=== PATIENT | female | born 1980 | race Caucasian/White ===

== ENCOUNTER → 2019-03-08 | Outpatient (CLI) | payer OTHER ==
--- NOTE | 2019-03-08 17:43 | WOMENS IMAGING REPORT ---
EXAM DESCRIPTION: 3D DX MAMMO BILAT; U/S BREAST UNILAT LIMITED COMPLETED DATE/TIME: 03/08/2019 8:38 am; 03/08/2019 10:03 am REASON FOR STUDY: N63.20 UNSPECIFIED LUMP IN THE LEFT BREAST, UNSPECIFIED QUADRANT; LEFT BREAST LUMP N63.20 UNSPECIFIED LUMP IN THE LEFT BREAST, UNSPECIFIED QUAD COMPARISON: No previous EXAM PARAMETERS: Standard craniocaudal and mediolateral oblique views of each breast recorded using digital acquisition and breast tomosynthesis. Additional left breast 90 mediolateral view, left breast cone compression in the CC and MLO orientat ions. Left breast and axilla ultrasound was also performed. Read with the assistance of CAD: .[employer] Rough Grade Version 9.2 LIMITATIONS: None. FINDINGS: RIGHT BREAST MASSES: No suspicious masses. CALCIFICATIONS: No new or suspicious calcifications. ARCHITECTURAL DISTORTION: None. ASYMMETRY: None noted. OTHER: No other significant findings. LEFT BREAST MASSES: In the medial left breast, 12 cm from the nipple at about the 8 to 9 o'clock position, a 1.5 cm spiculated mass is present with architectural distortion highly suspicious for malignancy. CALCIFICATIONS: No new or suspicious calcifications. ARCHITECTURAL DISTORTION: None. ASYMMETRY: None noted. OTHER: No other significant finding. Left breast and axilla ultrasound: Performed by both myself as well as the technologist. Patient presents with a palpable nodule left breast 9 o'clock position. Spiculated mass in this area at mammography/ tomosynthesis. Ultrasound of the medial left breast 8 to 9 o'clock position 12 cm f rom the nipple demonstrates an irregular hypoechoic mass with internal color flow and acoustic absorp tion, taller than wide, measuring 16 x 10 x 11 mm in size. This is highly suspicious for malignancy. Ultrasound-guided core biopsy, post biopsy clip placement and immediate follow-up two-view mammogra m recommended. Incidental finding of a 7 mm cyst in the left breast 3 o'clock position. Left axilla was scanned by myself at the time of encounter, no enlarged axillary lymph nodes were identified IMPRESSION: No mammographic/ tomosynthesis evidence for malignancy right breast 1.5 cm mass in the medial left breast correlates with palpable abnormality indicated by the patient. Imaging demonstrates a mass highly suspicious for malignancy. Ultrasound-guided core biopsy, post b iopsy clip placement with follow-up two-view mammogram recommended. BREAST DENSITY: c. The breasts are heterogeneously dense, which may obscure small masses. BIRAD: ASSESSMENT: 5 Highly suggestive of malignancy. Biopsy should be performed in the absence of clinical contra-indication. RECOMMENDATION: RECOMMENDED FOLLOW UP: Ultrasound-guided left breast biopsy of the mass at the 8 to 9 o'clock position. SPECIFIC INTERVENTION/IMAGING/CONSULTATION RECOMMENDED:As above COMMUNICATION:Findings were discussed with the patient at the time of encounter. Hailey LYNP was also notified 0900 hours 03/08/2019. COMMENT: The patient has been notified of the results by letter per SA requirements. Additional no tification policies are in place for contacting patient with suspicious or incomplete findings. Quality ID #225: The [employer] recommends an annual screening mammogram for women aged 40 years or over. This facility utilizes a reminder system to ensure that all patients receive reminder letters, and/or direct phone calls for appointments. This includes reminders for routine scr eening mammograms, diagnostic mammograms, or other Breast Imaging Interventions when appropriate. Th is patient will be placed in the appropriate reminder system. TECHNICAL DOCUMENTATION: FINDING NUMBER: (1) ASSESSMENT: (1) JOB ID: [id number] [email or web address]- All Rights Reserved Reading location - IP/workstation name: [email or web address]
== END ==
LOC: WI 10:53
PROVIDERS: ATTEND Nurse Practitioner Primary Care
DX: N63.20 Unspecified lump in the left breast, unspecified quadrant (principal)
CPT/HCPCS: 76642; 77066; G0279; 77062

== ENCOUNTER 2019-06-06 08:01 | Day surgery (SDC) | payer OTHER ==
[~2019-06-06 08:01] MED LIST: LIDOCAINE 1%/EPINEPHRINE INJ 20 ML VIAL ONE
[2019-06-06] MEDS ORDERED: MIDAZOLAM 2 MG/2 ML INJ ONE (08:30)
[2019-06-06] MEDS ORDERED: PROPOFOL INJ 200 MG/20 ML VIAL IV ONE (08:30)
[2019-06-06] MEDS ORDERED: FENTANYL CITRATE INJ/PF 100 MCG/2 ML AMPUL ONE (08:30)
[2019-06-06] MEDS ORDERED: KETAMINE HCL INJ 500 MG/10 ML VIAL ONE (08:49)
[2019-06-06] MEDS ORDERED: CEFAZOLIN 1 GM/D5W RTU 1 GM/50 ML RTUPB IV PRN (09:05)
[2019-06-06] MEDS ORDERED: ACETAMINOPHEN 325 MG TABLET PO PRN (09:06)
[2019-06-06] MEDS ORDERED: FENTANYL CITRATE INJ/PF 100 MCG/2 ML AMPUL IV PRN ×6 (09:42→12:45)
[2019-06-06] MEDS ORDERED: MEPERIDINE HCL/PF INJ 25 MG/1 ML DISP.SYRIN IV PRN ×2 (09:42→12:45)
[2019-06-06] MEDS ORDERED: MORPHINE SULFATE 10 MG/ML INJ IV PRN ×2 (09:42→12:45)
[2019-06-06] MEDS ORDERED: ONDANSETRON HCL INJ/PF 4 MG/2 ML SDV IV PRN ×2 (09:42→12:45)
[2019-06-06] MEDS ORDERED: DIPHENHYDRAMINE HCL 50 MG/ML VIAL IV PRN ×2 (09:42→12:45)
[2019-06-06] MEDS ORDERED: OXYCODONE-ACETAMINOPHEN 5-325 MG TABLET PO PRN ×2 (09:42)
[2019-06-06 09:44] LABS: ABSOLUTE EOSINOPHILS # (AUTO) 0.5 10^3/uL (0.0-0.6); ABSOLUTE LYMPHOCYTES (AUTO) 2.3 10^3/uL (0.5-4.7); ABSOLUTE MONOCYTES (AUTO) 0.5 10^3/uL (0.1-1.4); ABSOLUTE NEUT (AUTO) 2.6 10^3/uL (1.7-8.2); BASOPHILS % (AUTO) 0.8 % (0-2); EOSINOPHILS % (AUTO) 8.8 % (0-6); HEMATOCRIT 35.5 % (36.0-47.0); HEMOGLOBIN 12.1 g/dL (12.0-15.5); MEAN CORPUSCULAR HEMOGLOBIN 29.1 pg (27.0-33.4); MEAN CORPUSCULAR HGB CONC 34.2 g/dL (32.0-36.0); MEAN CORPUSCULAR VOLUME 85 fl (80-97); MONOCYTES % (AUTO) 7.8 % (3-13); PLATELET COUNT 244 10^3/uL (150-450); RED BLOOD COUNT 4.17 10^6/uL (3.72-5.28); RED CELL DISTRIBUTION WIDTH 14.1 % (11.5-14.0); SEGMENTED NEUTROPHILS % (AUTO) 44.6 % (42-78); TOTAL CELLS COUNTED % (AUTO) 100 %; WHITE BLOOD COUNT 5.9 10^3/uL (4.0-10.5)
[2019-06-06] MEDS ORDERED: CEFAZOLIN INJ 1 GM VIAL ONE (10:21)
[2019-06-06] MEDS ORDERED: LIDOCAINE 1%/EPINEPHRINE INJ 20 ML VIAL ONE (10:38)
--- NOTE | 2019-06-06 11:05 | Discharge Summary ---
Discharge Summary (SDC) - Discharge Final Diagnosis: Invasive left breast carcinoma status post bilateral mastectomies with reconstruction Date of Surgery: 06/06/19 Discharge Date: 06/06/19 Condition: Good Treatment or Instructions: May use port; allow Steri-Strips to fall off; may shower in 48 hours; may take Tylenol, Motrin, or previously prescribed narcotic. Follow-up with Dr. Joshi at [facility] in 2 weeks Referrals: PATRICIA JOSE, PHOTOENGRAVING FINISHER [Primary Care Provider] - Discharge Diet: As Tolerated Discharge Activity: Activity As Tolerated Home Care Assistance: None Needed Report the Following to Your Physician Immediately: Shortness of Breath, Increase in Pain, Fever over 101 Degrees
--- NOTE | 2019-06-06 11:12 | Operative Report ---
Operative Report DATE OF SURGERY: 06/06/19 PREOPERATIVE DIAGNOSIS: Invasive left breast carcinoma status post bilateral ma stectomy and reconstruction POSTOPERATIVE DIAGNOSIS: Same OPERATION: 1. Focused ultrasound of the right neck, and right chest wall. 2. Insertion of right internal jugular vein single-lumen catheter with placement of port in right subclavian position. 3. Interpretation of intraoperative fluoroscopy SURGEON: ARTEM ARCOS ANESTHESIA: LMAC TISSUE REMOVED OR ALTERED: None COMPLICATIONS: None ESTIMATED BLOOD LOSS: Scant INTRAOPERATIVE FINDINGS: See below PROCEDURE: Patient was seen in the preop holding area where the right chest was marked. She was then taken to the main operating room where LMAC anesthesia was induced. The arms were tucked, and then the neck both sides and chest wall both sides prepped and draped in sterile fashion with Betadine. Surgical plan surgical timeout were conducted. The findings were significant for oral chest wall implants. I scanned the chest with the variable frequency linear transducer being out the superior most aspect of the right implant which appeared to be above the pectoralis muscle. Markings were made on the skin. The right neck was scanned with the variable frequency transducer in the neck marked. It was then anesthetized with 1% plain lidocaine. A deepthi was made the skin with 11 blade, with a micro needle and wire threaded into the right internal jugular vein. A suitable location for the port was chosen in the right subclavian position. Again this was 2 cm below the clavicle, and approximately 2 cm above the termination of the right implant the skin was anesthetized 1% plain lidocaine. A 3 cm incision was made with a #15 blade, and a port pocket developed with electrocautery, and blunt dissection. The single-lumen 8 Yi catheter was then trimmed to the appropriate length, and tunneled between the 2 incisions with the malleable trocar. 1 end of the catheter was attached to the port and secured with the plastic ring. The port was tucked into the right subclavian pocket. Of note there was no communication between the subclavian port pocket, and the right chest wall implant. We now switched to the micro wire over to the conventional 0.030 guidewire all under fluoroscopic guidance using the micro introducer sheath. We now threaded over the tensional guidewire 8.5 Yi dilator introducer. The dilator and wire were removed, the free end of the catheter was threaded into the introducer sheath and the sheath stripped away. We checked the positioning of the cath with fluoroscopy and the tip was in the superior vena cava, right atrial region. There was no evidence of ectopy. Hemostat was used to open up the official fascia of the neck to allow the catheter to have a smooth sweep. We aspirated the port chamber and flushed that satisfactorily. We felt the port and catheter were in good position. All wounds closed with 3-0 Vicryl benzoin and Steri- Strips. Patient tolerated the procedure well, taken to recovery in stable condition.
[2019-06-06] MEDS ORDERED: KETOROLAC TROMETHAMINE 60 MG/2 ML SDV ONE (13:50)
[2019-06-06] MEDS ORDERED: ONDANSETRON HCL INJ/PF 4 MG/2 ML SDV ONE (13:50)
[2019-06-06] MEDS ORDERED: DEXAMETHASONE SOD PHOSPHATE INJ 4 MG/1 ML VIAL ONE (13:50)
[2019-06-06 14:03] VITALS: BP 114/65
--- NOTE | 2019-06-06 18:09 | RADIOLOGY REPORT (SQ) ---
EXAM DESCRIPTION: FLUORO/CV PLACEMENT COMPLETED DATE/TIME: 06/06/2019 12:31 pm REASON FOR STUDY: RIGHT PORT-A-CATH C50.212 MALIG NEOPLASM OF UPPER-INNER QUADRANT OF LEFT FEMAL COMPARISON: None. FLUOROSCOPY TIME: 0.1 minutes 4 images saved to PACS. TECHNIQUE: Intra-operative images acquired during surgical procedure to evaluate progress. NUMBER OF IMAGES: 4 LIMITATIONS: None. FINDINGS: Limited field of view imaging shows placement of a Port-A-Cath. Please correlate with ope rative note. IMPRESSION: IMAGE(S) OBTAINED DURING PROCEDURE. COMMENT: Quality ID [id number]: Final reports for procedures using fluoroscopy that document radiation exp osure indices, or exposure time and number of fluorographic images (if radiation exposure indices are not available) Please consult full operative report of the attending physician for description of the procedure. TECHNICAL DOCUMENTATION: JOB ID: [id number] [employer]- All Rights Reserved Reading location - IP/workstation name: [email or web address]
== END 2019-06-06 12:50 | disposition home or self-care (01) ==
LOC: OROUT 08:01
PROVIDERS: ATTEND Surgery
DX: C50.212 Malignant neoplasm of upper-inner quadrant of left female breast (principal); J45.909 Unspecified asthma, uncomplicated
CPT/HCPCS: 36561; 36415; 85025; 81025; 77001; 00532; C1752; C1788; J2250; J0690; J1100; J1885; J3010; J3490; J2405; J2704; J1642; 532